=== PATIENT | female | born 1960 | race African-American/Black ===

== ENCOUNTER → 2018-03-26 | Outpatient (CLI) | DX: Z01.812 Encounter for preprocedural laboratory examination (principal); Z01.810 Encounter for preprocedural cardiovascular examination; Z01.811 Encounter for preprocedural respiratory examination; C54.1 Malignant neoplasm of endometrium ==

== ENCOUNTER 2018-04-03 05:38 | Observation (INO) | payer OTHER ==
[~2018-04-03] VITALS: Ht 165.1 cm; Wt 121.2 kg
[~2018-04-03 05:38] MED LIST: ALBU0.63 NEB; ASPI1TAB57 PO; CHOL100025 CHEW; GUAI600T11 PO; HYDR25TA5 PO; IBUP200C PO; LOSA100T PO; METF1000 PO; SIMV10TA PO
[2018-04-03] MEDS ORDERED: METOPROLOL TARTRATE 25 MG TAB PO PRN (06:00)
[2018-04-03] MEDS ORDERED: POVIDONE IODINE 5% (ANTISEPSIS KIT) 4 APPLICATIONS EACH NARE PRN (06:00)
[2018-04-03] MEDS ORDERED: SODIUM CHLORID 0.9% 500 ML IV PRN (06:00)
[2018-04-03] MEDS ORDERED: CHLORHEXIDINE GLUCONATE 2 % 1 PACK (2 CLOTHS) TOPICAL PRN (06:00)
[2018-04-03] MEDS ORDERED: LACTATED RINGER'S 1000 ML IV PRN (06:00)
[2018-04-03] MEDS ORDERED: HEPARIN SODIUM - SQ 10,000 UNITS/ML VIAL SQ ONE (06:15)
[2018-04-03] MEDS ORDERED: ACETAMINOPHEN 1000 MG/100 ML 100 ML IV ONE (06:25)
[2018-04-03] MEDS: ceFAZolin 2 GM/DEX PREMIX 50 ML IV SCH (07:16)
[2018-04-03] MEDS ORDERED: LIDOCAINE 1%/EPINEPHrine 1:100,000 SOLN 20 ML VIAL INFIL ONE (09:29)
[2018-04-03] MEDS ORDERED: SUGAMMADEX SODIUM 200 MG/2 ML VIAL IV PUSH ONE ×2 (09:56→10:33)
[2018-04-03] MEDS ORDERED: SODIUM CHLORIDE 0.9% FLUSH 10 ML FLUSH IV FLUSH PRN (10:45)
[2018-04-03] MEDS ORDERED: diphenhydrAMINE HCL 25 MG CAP PO PRN (10:45)
[2018-04-03] MEDS ORDERED: ONDANSETRON HCL 4 MG/2 ML VIAL IVP PRN (10:45)
[2018-04-03] MEDS ORDERED: LORazepam 0.5 MG TAB PO PRN (10:45)
[2018-04-03] MEDS ORDERED: MIDAZOLAM HCL 2 MG/2 ML VIAL ONE (11:02)
[2018-04-03] MEDS: KETOROLAC TROMETHAMINE 30 MG/ML (IVP) VIAL IVP SCH ×3 (11:10→23:40)
[2018-04-03] MEDS: RESP: ALBUTEROL 1.25 MG/3 ML NEB (SCH) NEB ×2 (11:15→22:00)
[2018-04-03] MEDS ORDERED: DO NOT ADM ANY ANTICOAGULANT DRUGS PRN (11:30)
[2018-04-03] MEDS: D5-1/2 NS + KCL 20 MEQ INJ 1,000 ML IV SCH ×2 (11:30→20:01)
[2018-04-03] MEDS ORDERED: *morphine SULFATE 8 MG/ML PERIprocedure ONLY ONE ×2 (11:34→14:01)
[2018-04-03 11:50] LABS: AUTOMATED NEUTROPHIL # 12.3 TH/MM3 (1.8-7.7); BASOPHIL % 0.1 % (0.0-2.0); EOSINOPHIL % 0.1 % (0.0-4.0); HEMATOCRIT 39.8 % (35.0-46.0); HEMOGLOBIN 13.7 GM/DL (11.6-15.3); LYMPH % 8.5 % (9.0-44.0); LYMPHOCYTE # 1.2 TH/MM3 (1.0-4.8); MEAN CORPUSCULAR HEMOGLOBIN 30.4 PG (27.0-34.0); MEAN CORPUSCULAR HGB CONC 34.5 % (32.0-36.0); MONO % 2.4 % (0.0-8.0); MONOCYTE # 0.3 TH/MM3 (0-0.9); NEUT % 88.9 % (16.0-70.0); PLATELET COUNT 292 TH/MM3 (150-450); RED BLOOD COUNT 4.52 MIL/MM3 (4.00-5.30); WHITE BLOOD COUNT 13.8 TH/MM3 (4.0-11.0)
--- NOTE | 2018-04-03 11:56 | MP ---
cc: Kristen Mccall MD, Jeffrey Schlapper, Brent DATE OF OPERATION: 04/03/2018 DATE OF PROCEDURE: 04/03/2018. PREOPERATIVE DIAGNOSIS: Grade 1 endometrial adenocarcinoma. POSTOPERATIVE DIAGNOSIS: Grade 1 endometrial adenocarcinoma. PROCEDURE PERFORMED: Robotic-assisted laparoscopic hysterectomy, bilateral salpingo-oophorectomy, lysis of adhesions. SURGEON: Kristen Mccall MD ANCHORER: Robert first calender worker. ANESTHESIA: General endotracheal anesthesia. ESTIMATED BLOOD LOSS: 100 mL IV FLUIDS: 1800 mL URINE OUTPUT: 400 mL HISTORY: A 57-year-old female, postmenopausal bleeding, biopsy showed grade 1 endometrial adenocarcinoma. She was counseled regarding these findings and was in favor of surgical management. She was seen in the preop holding area where findings are again reviewed. Plan of care was discussed. Questions were asked and answered. She expressed good understanding and was ready to move forward with surgery. FINDINGS: Uterine cavity sounded to 9 cm. There was a slightly prominent uterus, status post tubal ligation. There was a dilated left fallopian tube in the proximal segment. The ovaries grossly appeared normal. There was no appreciably enlarged pelvic or paraaortic lymph nodes. There is no peritoneal implants. No nodularity, no mass or other abnormality detected. There is a single band of adhesions between the omentum and the umbilicus and some adhesions between the colon and the left pelvic sidewall, otherwise no significant adhesions. The uterus once removed showed the tumor to be approximately 2.8 cm in diameter, had superficial invasion into the myometrium significantly less than senior care. There was some adenomyosis and some of the adenomyosis also may have in situ malignant changes. STATEMENT OF COMPLEXITY/MODIFIER: The complexity of this case was increased due to body habitus with a BMI of 42.6 and modifier should be applied accordingly. DESCRIPTION OF PROCEDURE: She was taken to the operating room and placed in dorsal lithotomy position, after general endotracheal anesthesia was administered. A timeout was undertaken. She was identified by site recognition and hospital ID bracelet and the proposed procedure was reviewed and confirmed. She was carefully positioned in padded Oscar stirrups. The arms were padded and secured to the sides. She was further secured to the operating table with egg crate padding and tape and across chest over the shoulder fashion. All sites noted to be properly aligned with no malalignment or pressure points. She was prepped and draped in sterile fashion. Cervix grasped. Uterine cavity sounded. Cervix dilated and a large VCare manipulator inserted and secured in usual fashion. Newell catheter placed in the bladder. She was returned to low lithotomy position. We confirmed that an orogastric tube was in the stomach on suction, after we had completed draping in anticipation of laparoscopy. With manual elevation of the abdominal wall and direct laparoscopic visualization, 5 mm cannula was introduced into the left upper quadrant and an atraumatic entry was confirmed as carbon dioxide gas was insufflated. 12 mm cannula placed in the midline above the umbilicus, 8 mm cannula was placed in the right upper quadrant, left lateral quadrant and the original 5 mm exchanged for an 8 mm cannula. She was placed in Trendelenburg position. Peritoneal washings were obtained for cytology. The anatomy was surveyed with findings as described above. The small bowel was folded back on its mesenteric root and 3 Ray-Richi sponges were placed around the root of the small bowel mesentery. The robotic system was brought into the operative field and attached in the usual fashion. Monopolar scissors, fenestrated bipolar forceps and ProGrasp manipulator was placed in arms number 1, 2, and 3 respectively and I took my place at the surgeon's console. Right round ligament was isolated, cauterized, transected. The anterior and posterior leaves of the broad ligament were opened. The right ureter was identified. The right infundibulopelvic ligament was isolated. The intervening peritoneum was opened and the infundibulopelvic ligament was dissected to the level of the pelvic brim where it was cauterized and transected. Posterior peritoneum was opened along the right side of the uterus and cervix and the right vesicouterine peritoneum dissected off the lower uterine segment and cervix. The right uterine vessels were skeletonized, were quite prominent and so attention was directed toward the left side, prior to any attempts at hemostasis on the right side. Left round ligament was isolated, cauterized and transected. Adhesions were taken down against the left pelvic sidewall. A retroperitoneal dissection was continued. The left ureter was identified. The left infundibulopelvic ligament was isolated. The intervening peritoneum was opened. The infundibulopelvic ligament was isolated to the level of the pelvic brim. It was cauterized and transected. Posterior peritoneum opened along the left side of the uterus and cervix and the left vesicouterine peritoneum was dissected off the lower uterine segment and cervix. Left uterine vessels were skeletonized. Now, the uterine vessels were securely cauterized bilaterally, which rendered the uterus to be blanched, confirming that the major blood supply had been secured. On the left side, the uterine vessels were transected and the cardinal, paracervical and uterosacral ligaments were isolated, cauterized and transected in a stepwise fashion. Attention was redirected toward the right side where the right uterine vessels were transected. The cardinal, paracervical and uterosacral ligaments were isolated, cauterized and transected in stepwise fashion. Colpotomy was performed the cervix from the upper vagina. The specimen was withdrawn transvaginally which included uterus, cervix, tubes and ovaries and the pneumooccluder balloon was placed in the vagina to maintain pneumoperitoneum. Instruments 1 and 3 exchanged for needle drivers as an 0 Vicryl suture was then introduced. Vaginal cuff was closed with full thickness closure including the posterior peritoneum and the uterosacral ligament, tied via instrument tie. The suture was held on countertraction as a running full thickness continuous closure was carried across the vaginal apex incorporating the posterior peritoneum, secured in a similar fashion to the right corner and tied securely. The needle was cut and removed. The pelvis was thoroughly irrigated. Small bleeders rendered hemostatic with bipolar cautery. There was a good margin between the vaginal cuff suture line and the edge of the bladder. Good peristalsis of ureters bilaterally. Anesthesia made us aware that she had shifted to new onset atrial fibrillation. She was maintaining her oxygenation, maintaining her blood pressure and her rate was controlled with medication, but efforts were made to expedite the completion of the case. No further staging steps were felt to be warranted given the preliminary pathology and concerns regarding her cardiac rhythm. Accordingly, the robotic instruments were removed. The robotic system was disengaged from the operative field. I reentered the bedside under sterile condition. Each of the 3 Ray-Richi sponges were removed through the 12 mm cannula. They were removed individually and inspected and noted to be removed in their entirety. The 12 mm fascial defect was closed with interrupted 0 Vicryl sutures using a needle pass fascial closure apparatus. They were tied securely rendering the fascia completely airtight and hemostatic. The remaining cannulas were withdrawn. Carbon dioxide gas was removed. 3-0 Vicryl subcutaneous, 3-0 Vicryl subcuticular and Steri-Strips were used to close these incisions. She was returned to dorsal lithotomy position. Pelvic exam confirmed the vaginal cuff was well-supported, hemostatic. There were no remaining foreign objects in the vagina. Final counts were correct. She was returned to dorsal supine position and was pending reversal of anesthesia, when I left the operating room to precede her to the postanesthesia care unit. MD CLEMENTE Moreno/RODOLFO , 11:23 AM , 11:55 AM
[2018-04-03] MEDS ORDERED: PROPOFOL 200 MG/20 ML AMP IV ONE (12:00)
[2018-04-03] MEDS ORDERED: LACTATED RINGER'S 1000 ML INJ 1,000 ML IV ONE (12:00)
[2018-04-03] MEDS ORDERED: ONDANSETRON HCL 4 MG/2 ML VIAL IV ONE (12:00)
[2018-04-03] MEDS ORDERED: LIDOCAINE HCL 1% PF 5 ML SYRINGE OTHER ONE (12:00)
[2018-04-03] MEDS ORDERED: DEXAMETHASONE SOD PHOS 4 MG/ML VIAL IV ONE (12:00)
[2018-04-03] MEDS ORDERED: ePHEDrine/NS 25 MG/5 ML SYRINGE IV ONE (12:00)
[2018-04-03] MEDS ORDERED: PHENYLEPH/NS 1000 MCG/10 ML SYR IV ONE (12:00)
[2018-04-03] MEDS ORDERED: ROCURONIUM INJ 50 MG/5 ML SYRINGE IV PUSH ONE (12:00)
[2018-04-03] MEDS ORDERED: LABETALOL HCL 100 MG/20 ML VIAL IV ONE (12:00)
[2018-04-03] MEDS: INSULIN NovoLIN REGULAR SUPPLEMENTAL SCALE SQ SCH ×3 (12:00→20:12)
[2018-04-03 12:02] LABS: BICARBONATE 29.6 MEQ/L (21.0-32.0); BLOOD UREA NITROGEN 8 MG/DL (7-18); CHLORIDE 100 MEQ/L (98-107); CREATININE 1.02 MG/DL (0.50-1.00); GLOMERULAR FILTRATION RATE 68 ML/MIN (>89); GLUCOSE,RANDOM 175 MG/DL (74-106); SODIUM (NA) 138 MEQ/L (136-145)
[2018-04-03 12:09] LABS: TROPONIN I LESS THAN 0.02 NG/ML (0.02-0.05)
[2018-04-03 16:01] VITALS: PULSE 73
[2018-04-03 16:21] VITALS: BP 152/85; PULSE 75; RESP 16; TEMP 98.3; O2SAT 100
--- NOTE | 2018-04-03 17:13 | PD.CONS ---
HPI Consult Requested By Primary Care Physician Non-Staff History of Present Illness 57 yo AA lady with HTN, HLD, NIDDM, morbid obesity and grade 1 endometrial adenocarcinoma who presented today for elective laproscopic hysterectomy and BSO which was completed this morning. She was noted by anesthesia to have intraoperative atrial fibrillation which was hemodynamically stable. The procedure was completed without complication I am told. She spontaneously converted to NSR in the post-operative period and has maintained NSR on telemetry since. ECG shows NSR with no ST-T wave abnormality. She feels a bit groggy and has some abdominal soreness as she is recovering post -op but otherwise without chest pain, dyspnea, palpitations. Review of Systems Consitutional: COMPLAINS OF: Fatigue 10 point ROS negative other than noted in HPI Past Family Social History Allergies: Coded Allergies: No Known Allergies (Verified Allergy, Unknown, 04/03/18) Past Medical History HTN HLD NIDDM heart Murmur morbid obesity endometrial adenocarcinoma Past Surgical History lap hysterectomy and BSO 04/03/18 Reported Medications Reported Meds & Active Scripts Active Reported Ibuprofen 200 Mg Cap 200 Mg PO Q6H PRN Vitamin D3 (Cholecalciferol) 1,000 Unit Chew 1,000 Units CHEW DAILY Mucus Relief ER (Guaifenesin) 600 Mg Tab 600 Mg PO BID PRN Metformin (Metformin HCl) 1,000 Mg Tab 1,000 Mg PO HS With a meal Simvastatin 10 Mg Tab 10 Mg PO DAILY Losartan (Losartan Potassium) 100 Mg Tab 100 Mg PO DAILY Hydrochlorothiazide 25 Mg Tab 25 Mg PO DAILY Albuterol Neb (Albuterol Sulfate) 0.63 Mg/3 Ml Neb 0.63 Mg NEB Q6HR NEB PRN Aspirin 81 (Aspirin) 81 Mg Tabdr 81 Mg PO DAILY Active Ordered Medications Current Medications Medications (Trade) Dose Ordered Sig/Montrell Route Start Time Stop Time Status Last Admin Lactated Ringer's 1,000 ml @ 30 mls/hr Q24H PRN IV 04/03/18 06:00 04/06/18 05:59 04/03/18 06:45 Sodium Chloride 500 ml @ 30 mls/hr [id number] PRN IV 04/03/18 06:00 04/06/18 05:59 (Lopressor) 25 mg CLINICAL PROGRAMMER PRN PO 04/03/18 06:00 04/06/18 05:59 (Betadine 5% Antisepsis Kit) 1 applic CLINICAL PROGRAMMER PRN EACH NARE 04/03/18 06:00 04/06/18 05:59 04/03/18 06:50 (Chlorhexidine 2% Cloth) 3 pack CLINICAL PROGRAMMER PRN TOPICAL 04/03/18 06:00 04/06/18 05:59 04/03/18 06:00 Cefazolin Sodium/ Dextrose 50 ml @ 100 mls/hr CLINICAL PROGRAMMER IV 04/03/18 06:15 04/06/18 06:14 04/03/18 07:16 (Hydrodiuril) 25 mg DAILY PO 04/04/18 09:00 (Cozaar) 100 mg DAILY PO 04/04/18 09:00 (Pravachol) 20 mg DAILY PO 04/04/18 09:00 (NovoLIN R SUPPLEMENTAL SCALE) 1 ACHS SLIDING SCALE SQ 04/03/18 12:00 Potassium Chloride/Dextrose/ Sod Cl 1,000 ml @ 100 mls/hr Q10H IV 04/03/18 10:32 04/03/18 11:30 (NS Flush) 2 ml UNSCH PRN IV FLUSH 04/03/18 10:45 (NS Flush) 2 ml BID IV FLUSH 04/03/18 21:00 (Toradol Inj) 30 mg Q6H IVP 04/03/18 11:00 04/04/18 05:01 04/03/18 11:10 (Percocet 5-325 Mg) 1 tab Q4H PRN PO 04/03/18 10:45 (Percocet 5-325 Mg) 2 tab Q4H PRN PO 04/03/18 10:45 (Benadryl) 25 mg Q6H PRN PO 04/03/18 10:45 (Zofran Inj) 4 mg Q6H PRN IVP 04/03/18 10:45 (Ativan) 0.5 mg Q8H PRN PO 04/03/18 10:45 (Albuterol Neb) 1.25 mg Q6HR NEB NEB 04/03/18 10:45 04/05/18 11:00 04/03/18 11:15 ([facility] [place] [facility]) ALL NURSING DEPARTME... UNSCH PRN .XX 04/03/18 11:30 04/04/18 11:29 Family History no family history of atrial fibrillation Social History nonsmoker, no alcohol no formal exercise routine Physical Exam Vital Signs Vital Signs Date Time Temp Pulse Resp B/P (MAP) Pulse Ox O2 Delivery O2 Flow Rate FiO2 04/03/18 16:21 98.3 75 16 152/85 (107) 100 04/03/18 16:01 73 04/03/18 14:00 74 14 148/81 (103) 100 Nasal Cannula 3 04/03/18 13:00 73 14 139/81 (100) 100 Nasal Cannula 3 04/03/18 12:00 71 14 139/77 (97) 100 Nasal Cannula 3 04/03/18 11:45 69 14 142/76 (98) 100 Nasal Cannula 3 04/03/18 11:30 71 14 142/77 (98) 99 Nasal Cannula 3 04/03/18 11:15 65 14 143/81 (101) 100 Nasal Cannula 3 04/03/18 11:00 66 14 144/78 (100) 100 Simple Mask 8 04/03/18 10:53 97.4 64 14 135/75 (95) 100 Simple Mask 8 04/03/18 06:46 98.0 63 16 119/68 (85) 100 Physical Exam Gen: AOx3 comfortable HEENT: NCAT Neck: no elevation of JVP laying flat CV: regular, +s1/s2 no mrg Lungs: CTA bl Abdomen: bandaged, soft, mod TTP Ext: no edema Neuro: nonfocal Psych: normal affect Laboratory Laboratory Tests Test 04/03/18 11:20 White Blood Count 13.8 Red Blood Count 4.52 Hemoglobin 13.7 Hematocrit 39.8 Mean Corpuscular Volume 88.0 Mean Corpuscular Hemoglobin 30.4 Mean Corpuscular Hemoglobin Concent 34.5 Red Cell Distribution Width 13.0 Platelet Count 292 Mean Platelet Volume 8.0 Neutrophils (%) (Auto) 88.9 Lymphocytes (%) (Auto) 8.5 Monocytes (%) (Auto) 2.4 Eosinophils (%) (Auto) 0.1 Basophils (%) (Auto) 0.1 Neutrophils # (Auto) 12.3 Lymphocytes # (Auto) 1.2 Monocytes # (Auto) 0.3 Eosinophils # (Auto) 0.0 Basophils # (Auto) 0.0 CBC Comment DIFF FINAL Differential Comment Blood Urea Nitrogen 8 Creatinine 1.02 Random Glucose 175 Calcium Level 9.0 Phosphorus Level 3.0 Sodium Level 138 Potassium Level 3.7 Chloride Level 100 Carbon Dioxide Level 29.6 Anion Gap 8 Estimat Glomerular Filtration Rate 68 Total Creatine Kinase 144 Creatine Kinase MB 1.8 Troponin I LESS THAN 0.02 Free Thyroxine 1.30 Thyroid Stimulating Hormone 3rd Gen 1.130 Result Diagram: 04/03/18 1120 04/03/18 1120 Assessment and Plan Assessment and Plan Intraoperative Atrial fibrillation: - No history of known PAF. She spontaneously converted to NSR. Continue to monitor on tele while inpatient. If no recurrence of atrial fibrillation, recommend follow up as outpatient with her rides attendant for 30 day cardiac event monitor in a few weeks after recovery to evaluate for silent paroxysmal atrial fibrillation. Hold on anticoagulation therapy for now. CHADS2-VASc score = 3 ( HTN, DM, Female). Continue HTN management. Will sign off for now. Please reconsult if she has further atrial fibrillation. Yunior Uriostegui DO April 03, 2018 17:13
[2018-04-03] MEDS: oxyCODONE/ACETAMINOPHEN 5 MG/325 MG TAB PO PRN ×2 (17:32→21:31)
[2018-04-03 20:00] VITALS: BP 128/75; PULSE 78; PULSE 84; RESP 16; TEMP 97.9; O2SAT 100
[2018-04-03] MEDS: SODIUM CHLORIDE 0.9% FLUSH 10 ML FLUSH IV FLUSH SCH (20:02)
[2018-04-04] VITALS: BP 144/81; PULSE 62; PULSE 77; RESP 17; TEMP 98.8; O2SAT 99
[2018-04-04] MEDS: RESP: ALBUTEROL 1.25 MG/3 ML NEB (SCH) NEB ×2 (02:56→08:43)
[2018-04-04 04:00] VITALS: PULSE 60
[2018-04-04 04:13] VITALS: BP 132/65; PULSE 64; RESP 16; TEMP 96.5; O2SAT 100
[2018-04-04] MEDS: KETOROLAC TROMETHAMINE 30 MG/ML (IVP) VIAL IVP SCH (04:16)
[2018-04-04] MEDS: D5-1/2 NS + KCL 20 MEQ INJ 1,000 ML IV SCH (05:52)
[2018-04-04 06:53] LABS: AUTOMATED NEUTROPHIL # 10.9 TH/MM3 (1.8-7.7); BASOPHIL % 0.2 % (0.0-2.0); HEMATOCRIT 38.6 % (35.0-46.0); HEMOGLOBIN 12.6 GM/DL (11.6-15.3); MEAN CELL VOLUME 88.1 FL (80.0-100.0); MEAN CORPUSCULAR HEMOGLOBIN 28.9 PG (27.0-34.0); MEAN CORPUSCULAR HGB CONC 32.8 % (32.0-36.0); MEAN PLATELET VOLUME 7.9 FL (7.0-11.0); MONOCYTE # 1.4 TH/MM3 (0-0.9); NEUT % 75.8 % (16.0-70.0); PLATELET COUNT 301 TH/MM3 (150-450); RED BLOOD COUNT 4.38 MIL/MM3 (4.00-5.30); RED CELL DISTRIBUTION WIDTH 13.2 % (11.6-17.2); WHITE BLOOD COUNT 14.3 TH/MM3 (4.0-11.0)
[2018-04-04 07:12] LABS: BICARBONATE 29.1 MEQ/L (21.0-32.0); CALCIUM 8.9 MG/DL (8.5-10.1); CREATININE 0.68 MG/DL (0.50-1.00)
--- NOTE | 2018-04-04 07:19 | EKG ---
Date Performed: 04/03/2018 Time Performed: 11:17:57 PTAGE: 57 years EKG: Sinus rhythm NORMAL ECG PREVIOUS TRACING : 03/26/2018 14.12 DOCTOR: Aicha Rosario Interpretating Date/Time 04/04/2018 07:17:23
[2018-04-04 07:30] VITALS: PULSE 54
[2018-04-04] MEDS ORDERED: OXYC1TAB63 PO (07:43)
[2018-04-04 08:00] VITALS: BP_SYST 101; BP_SYST 132; BP_DIAS 65; BP_DIAS 66; PULSE 60; PULSE 63; RESP 18; RESP 20; TEMP 97.7; O2SAT 97
[2018-04-04] MEDS: INSULIN NovoLIN REGULAR SUPPLEMENTAL SCALE SQ SCH ×2 (08:00→11:47)
[2018-04-04] MEDS: SODIUM CHLORIDE 0.9% FLUSH 10 ML FLUSH IV FLUSH SCH (08:24)
[2018-04-04] MEDS: oxyCODONE/ACETAMINOPHEN 5 MG/325 MG TAB PO PRN ×2 (08:25→13:04)
--- NOTE | 2018-04-04 08:28 | MD ---
cc: Kristen Mccall MD, Brent DO Brooks, Jeffrey MD, PMO BUSINESS ANALYST Yunior Uriostegui MD DATE OF DISCHARGE: 04/04/2018 PROCEDURE: 04/03/2018, robotic-assisted laparoscopic hysterectomy, bilateral salpingo-oophorectomy, lysis of adhesions. DIAGNOSIS: Endometrial cancer. HOSPITAL COURSE: Her surgical case went well from a surgical standpoint. Noted by anesthesia was new onset atrial fibrillation during general anesthesia. Her blood pressure and oxygenation were maintained and her rhythm was controlled with medication and the surgery and anesthesia were completed otherwise uneventfully. Cardiology was consulted. Some baseline labs were obtained. Repeat EKG and evaluation showed that she converted back to normal sinus rhythm very soon after completion of anesthesia and was noted to be back in normal sinus rhythm in the postanesthesia care unit. Appreciate the input from Dr. Yunior Uriostegui of cardiology who recommended if she stay in sinus rhythm, no further intervention be done on an immediate basis, but recommended followup with cardiology for ongoing assessment and rate evaluation and to continue her hypertensive management. She was completely asymptomatic. 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 There appears to have been no additional episodes of atrial fibrillation detected on telemetry. She remains asymptomatic. She has no chest pain, shortness of breath or fatigue, pain or any other findings other than what is expected from one day out from surgery. She is tolerating oral intake. Newell catheter removed pending voiding, hemodynamically stable. Ins and outs 5240/2900. Labs this morning show an H and H of 12.6 and 38.6. Electrolytes: Potassium 3.7, BUN and creatinine 8 and 0.68. PHYSICAL EXAM: VITAL SIGNS: Afebrile, pulse ranging from 60-84, respirations 14-17, blood pressure 128 to 152/65 to 85, O2 saturations greater than or equal to 99%. GENERAL: She is alert. LUNGS: Clear. CARDIOVASCULAR: Regular rate and rhythm, rate controlled. ABDOMEN: Soft. Incision is clean and dry. GYNECOLOGIC: No bleeding. EXTREMITIES: Nontender. ASSESSMENT: Postoperative day #1 doing well in the early postoperative period with no additional arrhythmias other than that noted during anesthesia, asymptomatic. Findings, preliminary pathology discussed. Activities/restrictions reviewed. Questions were asked and answered. She expressed a good understanding. 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 We will ask that she contact the office of Dr. Yunior Uriostegui to see if he would see her in followup as he saw her in consultation. If for some reason that is not possible, then they can make recommendations as to with whom and how she should followup to follow through with his recommendations. From my standpoint, we will see her back in the office in 2 weeks. PLAN: Anticipate she will meet criteria for discharge to home. She is to resume prior medications. She will have a prescription for Percocet and she is to contact our office to ensure she has a followup scheduled in 2 weeks or to contact us should she have any questions or problems between now and the time of scheduled followup. Kristen Mccall MD KLM/DL , 07:51 AM , 08:26 AM
[2018-04-04] MEDS ORDERED: HYDROCHLOROTHIAZIDE 25 MG TAB PO SCH (09:00)
[2018-04-04] MEDS ORDERED: LOSARTAN 50 MG TAB PO SCH (09:00)
[2018-04-04] MEDS ORDERED: PRAVASTATIN SOD 20 MG TAB PO SCH (09:00)
[2018-04-04 12:25] VITALS: BP 103/59; PULSE 62; RESP 18; O2SAT 100
== END 2018-04-04 13:33 | disposition home or self-care (01) ==
LOC: HSDC 05:38 → HCIN 10:35
PROVIDERS: ADMIT Obstetrics & Gynecology Gynecologic Oncology; ATTEND Obstetrics & Gynecology Gynecologic Oncology
DX: C54.1 Malignant neoplasm of endometrium (principal); N73.6 Female pelvic peritoneal adhesions (postinfective); Z68.41 Body mass index [BMI] 40.0-44.9, adult; E66.01 Morbid (severe) obesity due to excess calories; I48.91 Unspecified atrial fibrillation; I10 Essential (primary) hypertension; E78.5 Hyperlipidemia, unspecified; E11.9 Type 2 diabetes mellitus without complications; Z79.84 Long term (current) use of oral hypoglycemic drugs; Z79.899 Other long term (current) drug therapy; Z01.810 Encounter for preprocedural cardiovascular examination; I97.791 Other intraoperative cardiac functional disturbances during other surgery
CPT/HCPCS: 00840; 58552; 80048; 82550; 82552; 82948; 84100; 84439; 84443; 84484; 85025; 86850; 86900; 86901; 88112; 88307; 88331; 88332; 93005; 94150; 94640; 94664; 96365; 96366; 96375; 96376; G0378; J0131; J0690; J1100; J1644; J1885; J2250; J2270; J2370; J2405; J3010; J3480; J7120; J7613; 88309